=== PATIENT | male | born 1980 | race Caucasian/White ===

== ENCOUNTER 2020-05-06 17:27 | Emergency (ER) | payer OTHER ==
[~2020-05-06] VITALS: Ht 193 cm; Wt 122.5 kg
[~2020-05-06 17:27] MED LIST: ADVIL100 MG PO; CYCLOBENZAPRINE10 MG PO; NAPROSYN500 MG PO; NORCO 10-325 T1 EACH PO; NORCO 5-325 TA1 EACH PO; PERCOCET 5-3251 EACH PO
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
[2020-05-06] MEDS ORDERED: ASPIRIN325 MG PO (17:39)
--- NOTE | 2020-05-07 21:35 | EKG ---
[facility] [address] [facility] [address] [facility] [place], [place] [address] Signed Normal sinus rhythm Moderate voltage criteria for LVH, may be normal variant Nonspecific T wave abnormality Prolonged QT Abnormal ECG No previous ECGs available Confirmed by GUI KENNEDY DO ([id number]) on 05/07/2020 9:34:49 PM Electronically Signed By: GUI KENNEDY DO 05/07/20 2135 PATIENT NAME: DAYAN RODRIGUEZ TAJ Electrocardiogram DATE OF : [birth year] PHYSICIAN: GUI KENNEDY DO REPORT #: [id number] REPORT IS CONFIDENTIAL AND NOT TO BE RELEASED WITHOUT AUTHORIZATION
== END 2020-05-06 20:10 | disposition home or self-care (01) ==
LOC: ED 17:27
DX: R07.9 Chest pain, unspecified (principal); F17.200 Nicotine dependence, unspecified, uncomplicated; Z79.82 Long term (current) use of aspirin
CPT/HCPCS: 71045; 80053; 83735; 84484; 85025; 93005; 93010; 99285-25

== ENCOUNTER 2020-08-23 14:19 | Emergency (ER) | payer OTHER ==
[~2020-08-23] VITALS: Ht 193 cm; Wt 113.4 kg
[~2020-08-23 14:19] MED LIST changes: +ASPIRIN325 MG PO
--- NOTE | 2020-08-24 13:11 | EKG ---
[facility] [address] [facility] [place], [place] [address] Signed Normal sinus rhythm Moderate voltage criteria for LVH, may be normal variant Borderline ECG When compared with ECG of 06-MAY-2020 17:35, No significant change was found Confirmed by GUI KENNEDY DO ([id number]) on 08/24/2020 1:11:39 PM Electronically Signed By: GUI KENNEDY DO 08/24/20 1311 PATIENT NAME: DAYAN RODRIGUEZ TAJ Electrocardiogram DATE OF : [birth year] PHYSICIAN: GUI KENNEDY DO REPORT #: [id number] REPORT IS CONFIDENTIAL AND NOT TO BE RELEASED WITHOUT AUTHORIZATION
--- NOTE | 2020-08-25 18:37 | PATH ---
[facility] [address] [place], [place] [address] Signed ORDERING PHYSICIAN: Ismael Awan MD PATIENT NAME: DAYAN RODRIGUEZ GENDER: Celestino : 1980 Prior History: No cases found. SPECIMEN(S): No Source Given MOLECULAR PATHOLOGY RESULTS: SARS-CoV-2 Not Detected ADDITIONAL NOTES.: The [employer] Fusion SARS-CoV-2 Assay is a multiplex real-time PCR (RT-PCR) in vitro diagnostic test intended for the qualitative detection of RNA from SARS-CoV-2 from individuals who meet COVID-19 clinical and/or epidemiological criteria. In general, SARS-CoV-2 RNA can be detected during the acute phase of infection. Positive results indicate the presence of SARS-CoV-2 RNA. Clinical correlation with patient history and other diagnostic information is necessary to determine patient infection status. Positive results do not rule out bacterial infection or co-infection with other viruses. Negative results do not preclude SARS-CoV-2 infection and should not be used as the sole basis for patient management decisions. Negative results must be combined with other clinical observations, patient history, and epidemiological information. The [place] Fusion SARS-CoV-2 Assay is not yet approved or cleared by the [place] FDA. When there are no FDA-approved or cleared tests available, and other criteria are met, FDA can make tests available under an emergency access mechanism called an Emergency Use Authorization (EUA). The EUA for this test is supported by the Architectural Drafter of Health and Human Service's (HHS's) declaration that circumstances exist to justify the emergency use of in vitro diagnostics for the detection and/or diagnosis of the virus that causes COVID-19. This EUA will remain in effect for the duration of the COVID-19 declaration justifying emergency of IVDs, unless it is terminated or revoked by FDA, after which the test may no longer be used. The [place] Fusion SARS-CoV-2 Assay is for use only under EUA PATIENT NAME: DAYAN RODRIGUEZ PATHOLOGY DATE OF : [birth year] REPORT #: [id number] PHYSICIAN: SHIRLENE PATHOLOGY PCP: NO PRIMARY CARE PHYSICIAN REPORT IS CONFIDENTIAL AND NOT TO BE RELEASED WITHOUT AUTHORIZATION [facility] [address] [place], [place] [address] Signed in laboratories certified under the Clinical Laboratory Improvement Amendments of 1988 (CLIA) to perform high complexity tests. [facility] is certified under CLIA to perform high complexity clinical laboratory testing. Bridget Ye PERFORMING LABORATORY.: Molecular testing was performed by [facility] [place] [address] (Cover Operator: Elliot Daigle D.O.; CLIA#: [id number]) Diagnostician: System Interface Pathologist Electronically Signed 08/25/2020 Copies: ~ PATIENT NAME: DAYAN RODRIGUEZ PATHOLOGY DATE OF : [birth year] REPORT #: [id number] PHYSICIAN: SHIRLENE THOMAS PCP: NO PRIMARY CARE PHYSICIAN REPORT IS CONFIDENTIAL AND NOT TO BE RELEASED WITHOUT AUTHORIZATION
== END 2020-08-23 18:57 | disposition home or self-care (01) ==
LOC: ED 14:19
DX: I10 Essential (primary) hypertension (principal); Z20.828 Contact with and (suspected) exposure to other viral communicable diseases; F17.200 Nicotine dependence, unspecified, uncomplicated
CPT/HCPCS: 71045; 80053; 83735; 84484; 85025; 93005; 93010; 99284-25; C9803

== ENCOUNTER 2020-09-21 12:41 | Emergency (ER) | payer OTHER ==
[~2020-09-21] VITALS: Ht 193 cm; Wt 122.5 kg
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
== END 2020-09-21 14:40 | disposition home or self-care (01) ==
LOC: ED 12:41
DX: I10 Essential (primary) hypertension (principal); F17.200 Nicotine dependence, unspecified, uncomplicated
CPT/HCPCS: 99283

== ENCOUNTER 2020-11-27 14:05 | Emergency (ER) | payer OTHER ==
[~2020-11-27] VITALS: Ht 193 cm; Wt 113.4 kg
[2020-11-27] MEDS ORDERED: CEPHALEXIN500 M1 PO (16:07)
[2020-11-27] MEDS ORDERED: HYDROCODON-ACE1 EA11 PO (16:07)
== END 2020-11-27 16:25 | disposition home or self-care (01) ==
LOC: ED 14:05
PROC: 0HQGXZZ Repair Left Hand Skin, External Approach (ICD-10-PCS; principal; 2020-11-27)
DX: S61.412A Laceration without foreign body of left hand, initial encounter (principal); I10 Essential (primary) hypertension; F17.200 Nicotine dependence, unspecified, uncomplicated; Z23 Encounter for immunization; W26.8XXA Contact with other sharp object(s), not elsewhere classified, initial encounter
CPT/HCPCS: 12002; 90471; 90715; 99282-25; A9270

== ENCOUNTER 2021-05-05 13:33 | Emergency (ER) | payer OTHER ==
[~2021-05-05] VITALS: Ht 193 cm; Wt 117.9 kg
[~2021-05-05 13:33] MED LIST changes: +CEPHALEXIN500 M1 PO; +HYDROCODON-ACE1 EA11 PO
[2021-05-05] MEDS ORDERED: LISINOPRIL10 MG PO ×2 (13:40→15:50)
== END 2021-05-05 15:35 | disposition left against medical advice (07) ==
LOC: ED 13:33
DX: I10 Essential (primary) hypertension (principal); T24.231A Burn of second degree of right lower leg, initial encounter; F17.200 Nicotine dependence, unspecified, uncomplicated; X08.8XXA Exposure to other specified smoke, fire and flames, initial encounter
CPT/HCPCS: 99284

== ENCOUNTER 2021-10-22 13:40 | Emergency (ER) | payer OTHER ==
[~2021-10-22] VITALS: Ht 193 cm; Wt 117.9 kg
[~2021-10-22 13:40] MED LIST changes: +LISINOPRIL10 MG PO
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
[2021-10-22] MEDS ORDERED: LISINOPRIL-HCT1 EACH PO (14:09)
== END 2021-10-22 18:56 | disposition home or self-care (01) ==
LOC: ED 13:40
DX: U07.1 COVID-19 (principal); Z23 Encounter for immunization; I10 Essential (primary) hypertension; E66.9 Obesity, unspecified; F17.200 Nicotine dependence, unspecified, uncomplicated; Z79.899 Other long term (current) drug therapy
CPT/HCPCS: 80053; 81001; 83690; 85025; 96374; 96375; 99284-25; C9803; J1885; J2405; J7030; M0247; U0003

== ENCOUNTER 2021-12-13 16:26 | Emergency (ER) | payer OTHER ==
[~2021-12-13] VITALS: Ht 193 cm; Wt 117.9 kg
[~2021-12-13 16:26] MED LIST changes: +LISINOPRIL-HCT1 EACH PO
--- OUTSIDE RECORDS SUMMARY | 2021-12-13 17:48 | XMS ---
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 E.Brendan VISIT COUNT (12 MO.) [address] [facility] TOTAL 7 NOTE: Visits indicate total known visits. ED/C VISIT TRACKING (12 MO.) 12/13/2021 16:26 [facility] [place] TYPE: Emergency COMPLAINT: - HIGH BLOOD PRESSURE 10/22/2021 13:40 [facility] [place] TYPE: Emergency COMPLAINT: - HEADACHE,ABD PAIN DIAGNOSES: - Essential (primary) hypertension - Nicotine dependence, unspecified, uncomplicated - Encounter for immunization - Other nursing home (current) drug therapy - Obesity, unspecified - Headache, unspecified - COVID-19 10/09/2021 10:12 [facility] [place] TYPE: Emergency DIAGNOSES: - NOT FEELING WELL - Essential (primary) hypertension - Headache, unspecified 07/21/2021 21:02 [facility] [place] TYPE: Emergency DIAGNOSES: - Other specified abnormalities of plasma proteins - HYPERTENSION - Pleural effusion, not elsewhere classified - Hypertensive urgency - Solitary pulmonary nodule 05/07/2021 01:55 [facility] [place] TYPE: Emergency DIAGNOSES: - R LEG [...] encounter - Essential (primary) hypertension 02/22/2021 03:44 [facility] [place] TYPE: Emergency DIAGNOSES: - Essential (primary) hypertension - HEADACHE - Headache, unspecified INPATIENT VISIT TRACKING (12 MO.) No inpatient visits to display in this time frame [id number]
--- NOTE | 2021-12-15 17:25 | EKG ---
[facility] [address] [facility] [place], [place] [address] Signed Normal sinus rhythm Minimal voltage criteria for LVH, may be normal variant ( R in aVL ) Borderline ECG When compared with ECG of 23-AUG-2020 15:33, No significant change was found Confirmed by SUZETTE ALMEIDA MD ([id number]) on 12/15/2021 5:25:28 PM Electronically Signed By: SUZETTE ALMEIDA MD 12/15/21 1725 PATIENT NAME: DAYAN RODRIGUEZ Electrocardiogram DATE OF : 82 PHYSICIAN: SUZETTE ALMEIDA MD REPORT #: [id number] REPORT IS CONFIDENTIAL AND NOT TO BE RELEASED WITHOUT AUTHORIZATION
== END 2021-12-13 17:35 | disposition left against medical advice (07) ==
LOC: ED 16:26
DX: Z53.21 Procedure and treatment not carried out due to patient leaving prior to being seen by health care provider (principal)
CPT/HCPCS: 93005; 93010